=== PATIENT | female | born 1980 | race Caucasian/White ===

== ENCOUNTER → 2016-12-24 | Outpatient (CLI) | payer OTHER | LOC: FIMAGING 15:34 | PROVIDERS: ATTEND Physician Assistant Medical | DX: R29.90 Unspecified symptoms and signs involving the nervous system (principal) ==

== ENCOUNTER → 2016-12-30 | Outpatient (CLI) | payer OTHER ==
--- NOTE | 2016-12-31 11:36 | CPEEG ---
[f rep st] ELECTROENCEPHALOGRAM DATE OF STUDY: 12/30/2016 INTERPRETATION: Normal EEG during wakefulness and sleep. There were there were no potentially epil eptogenic abnormalities present during the recording. REPORT: This EEG contains 11-12 Hz alpha to the posterior head regions. There was no abnormal acti vation at rest, during photic stimulation, or hyperventilation. The patient became drowsy and fell asleep during the study. There was no observation during drowsiness, sleep, or during times of arou lorelei. /[id number]/MODL
== END ==
LOC: FCPNEURO 14:20
PROVIDERS: ATTEND Physician Assistant Medical
DX: R51 Headache (principal); R41.0 Disorientation, unspecified